=== PATIENT | male | born 1945 ===

== ENCOUNTER 2021-12-05 06:00 | Outpatient (RCR) | payer MEDICARE, SELFPAY | END 2021-12-17 23:59 | disposition home or self-care (01) | LOC: GPT 06:00 | PROVIDERS: Referring Provider Pain Medicine Interventional Pain Medicine; Visit Provider Pain Medicine Interventional Pain Medicine | DX: G62.9 Polyneuropathy, unspecified (principal) | CPT/HCPCS: 97110; 97112; 97140; 97162 ==

== ENCOUNTER 2021-12-18 06:00 | Outpatient (RCR) | payer MEDICARE, SELFPAY | END 2022-01-17 23:59 | disposition home or self-care (01) | LOC: GPT 06:00 | PROVIDERS: Referring Provider Pain Medicine Interventional Pain Medicine; Visit Provider Pain Medicine Interventional Pain Medicine | DX: M48.062 Spinal stenosis, lumbar region with neurogenic claudication (principal); G62.9 Polyneuropathy, unspecified | CPT/HCPCS: 97110; 97140; 97530; 97535 ==